=== PATIENT | female | born 1960 | race Caucasian/White ===

== ENCOUNTER 2019-04-10 07:06 | Emergency (ER) | payer OTHER ==
--- NOTE | 2019-04-10 08:21 | UC ---
Throat Pain/Nasal [place] HPI - HPI Summary HPI Summary: 3-4 DAYS OF SINUS PRESSURE, EARACHE AND MOUTH PAIN. DENIES COUGH, RHINITIS, FEVER, NAUSEA/VOMITING. STATES SHE HAS SORE SPOTS ON THE ROOF OF HER MOUTH. SHE USES NASAL FLONASE EVERY DAY AND REPORTS THAT SHE HAS RECENTLY BEEN EXTREMELY STRESSED AND NOT SLEEPING WELL. DENIES ANY RECENT ANTIBIOTIC USE. WAS ON A COURSE OF PREDNISONE ABOUT 4 WEEKS AGO. - History of Current Complaint Chief Complaint: UCRespiratory Stated Complaint: SW[place]EN GLANDS SORE THROAT SINUS ISSUE Time Seen by Provider: 04/10/19 07:37 Hx Obtained From: Patient Onset/Duration: Gradual Onset, Lasting Days, Still Present Severity: Moderate Pain Intensity: 2 Pain Scale Used: 0-10 Numeric Cough: None Associated Signs & Symptoms: Positive: Sinus Discomfort, Nasal Discharge. Negative: Fever - Allergies/Home Medications Allergies/Adverse Reactions: Allergies Allergy/AdvReac Type Severity Reaction Status Date / Time cefaclor [From [facility]] Allergy Hives/Diff. Verified 04/10/19 07:22 Breathing/I tching Sulfa (Sulfonamide Allergy Hives Verified 04/10/19 07:22 Antibiotics) Home Medications: Home Medications Calcium Carbonate [Calcium] 1 chw PO DAILY 04/10/19 [History Confirmed 04/10/19] Estrogens/Medroxypr 0.3(NF) [Prempro 0.3/1.5 (NF)] 1 tab PO DAILY 04/10/19 [ History Confirmed 04/10/19] Glucosamine Sulfate Dipot Chlr [Glucosamine] 1 tab PO DAILY 04/10/19 [History Confirmed 04/10/19] Ibuprofen 200 mg PO DAILY 04/10/19 [History Confirmed 04/10/19] Loratadine [Claritin] 10 mg PO DAILY 04/10/19 [History Confirmed 04/10/19] Methylphenidate HCl [Ritalin LA] 30 mg PO DAILY 04/10/19 [History Confirmed ] PMH/Surg Hx/FS Hx/Imm Hx - Additional Past Medical History Additional PMH: ALLERGIES - Surgical History Surgical History: None - Social History Alcohol Use: Daily Alcohol Amount: 1-2 glasses wine Substance Use Type: None Smoking Status (MU): Never Smoked Tobacco Review of Systems All Other Systems Reviewed And Are Negative: Yes Constitutional: Positive: Negative ENT: Positive: Sore Throat, Ear Ache, Sinus Congestion Respiratory: Positive: Negative Cardiovascular: Positive: Negative Gastrointestinal: Positive: Negative Physical Exam Triage Information Reviewed: Yes Appearance: Well-Appearing, No Pain Distress, Well-Nourished Vital Signs: Initial Vital Signs Temp 98.2 F 04/10/19 07:16 Pulse 58 04/10/19 07:16 Resp 18 04/10/19 07:16 BP 114/73 04/10/19 07:16 Pulse Ox 100 04/10/19 07:16 Vital Signs Reviewed: Yes Eyes: Positive: Conjunctiva Clear ENT: Positive: Hearing grossly normal, TMs normal, Other - HARD PALATE WITH WHITE PATCHES. WHEN SCRAPED OFF UNDERLYING MUCOSA ERODED AND TENDER Neck: Positive: Supple, Nontender, No Lymphadenopathy Respiratory Exam: Normal Cardiovascular Exam: Normal Abdomen Description: Positive: Soft Musculoskeletal: Positive: No Edema Neurological: Positive: Alert Psychological: Positive: Age Appropriate Behavior Skin: Negative: Rashes Throat Pain/Nasal Course/Dx - Course Course Of Treatment: CLINICAL PRESENTATION CONSISTENT WITH ORAL CANDIDIASIS. NO SIGN OF ANY BACTERIAL INFECTION ON EXAM TODAY. PATIENT DOES USE FLONASE DAILY AND REPORTS SHE HAS RECENTLY BEEN VERY STRESSED AND NOT SLEEPING WELL. WE'LL TREAT WITH ORAL NYSTATIN SWISH AND SWALLOW. HAVE ALSO GIVEN VISCOUS LIDOCAINE FOR PATIENT TO USE TOPICALLY ON THE SORE AREA. ADVISED HER TO RINSE HER MOUTH WITH WATER AFTER USING FLONASE AND TO PERHAPS CONSIDER DECREASING THE FREQUENCY OF HER FLONASE USE. SHE WILL FOLLOW-UP IF NOT IMPROVING WITH THIS TREATMENT OVER THE NEXT 1-2 WEEKS. - Differential Dx/Diagnosis Provider Diagnosis: Oral candidiasis Discharge - Sign-Out/Discharge Documenting (check all that apply): Patient Departure All imaging exams completed and their final reports reviewed: No Studies - Discharge Plan Condition: Stable Disposition: HOME Prescriptions: Lidocaine 2% VISCOUS* 2 ml SWISH SPIT QID PRN #1 btl PRN Reason: Pain Nystatin SUSPENSION* 5 ml PO QID #400 ml Patient Education Materials: Oral Candidiasis (ED) Referrals: Connie Andrade MD [Primary Care Provider] - If Needed Additional Instructions: ON EXAM YOU APPEAR TO HAVE ORAL THRUSH. THIS MAY BE DUE TO YOUR CHRONIC FLONASE USE IN ADDITION TO YOUR RECENT STRESS AND LACK OF SLEEP WHICH CAN LOWER YOUR IMMUNE SYSTEM. BE SURE TO RINSE YOUR MOUTH WITH WATER AFTER USING FLONASE. CONSIDER DECREASING FLONASE USE TO EVERY OTHER DAY. SEE RE-EVALUATION IF YOUR SYMPTOMS ARE NOT IMPROVING AFTER 1-2 WEEKS. USE A QTIP OR COTTON SWAB TO APPLY VISCOUS LIDOCAINE TOPICALLY TO THE AFFECTED AREA. THIS WILL HELP WITH THE DISCOMFORT. STAY WELL HYDRATED AND RESTED. - Billing Disposition and Condition Condition: STABLE Disposition: Home
== END 2019-04-10 08:10 | disposition home or self-care (01) ==
LOC: UCEAST 07:06
DX: B37.0 Candidal stomatitis (principal); J34.89 Other specified disorders of nose and nasal sinuses; J31.0 Chronic rhinitis; Z88.1 Allergy status to other antibiotic agents; Z88.2 Allergy status to sulfonamides
CPT/HCPCS: 99202; G0463